=== PATIENT | male | born 1990 | race African-American/Black ===

== ENCOUNTER 2019-05-15 06:59 | Emergency (ER) | payer SELFPAY ==
[~2019-05-15] VITALS: Ht 177.8 cm; Wt 72.6 kg
[2019-05-15 07:02] VITALS: BP 141/98
--- NOTE | 2019-05-15 07:12 | NUR ---
C/O ITCHING TO LEFT EYE X1 WEEK, REDNESS AND SWELLING INCREASED X3 DAYS. STRONG MARIJUANA ODOR PRESENT. DENIES N/V/D; SKIN IS PINK/WARM/DRY; AAOX4 WITH EVEN AND STEADY GAIT; LUNGS CLEAR BL; HR EVEN AND REGULAR; PT DENIES ANY FEVER, CP, SOB, OR COUGH AT THIS TIME; PATIENT STATES PAIN OF 0/10 AT THIS TIME; VSS; PATIENT POSITIONED FOR COMFORT; HOB ELEVATED; BEDRAILS UP X2; BED DOWN. ER MD MADE AWARE OF PT STATUS.
--- NOTE | 2019-05-15 07:30 | NUR ---
Dr. Bergman evaluating patient at bedside.
[2019-05-15] MEDS ORDERED: predniSONE 20 MG TAB PO ONE (07:45)
[2019-05-15] MEDS ORDERED: AMOXIL/CLAVULANATE 875/125 MG 1 TAB PO ONE (07:45)
--- NOTE | 2019-05-15 08:00 | NUR ---
VISION ACUITY CHECKED. BOTH LEFT AND RIGHT ARE 20/20.
[2019-05-15 08:37] VITALS: BP 128/81
--- NOTE | 2019-05-15 08:39 | NUR ---
Patient discharged with v/s stable. Written and verbal after care instructions given and explained. Patient alert, oriented and verbalized understanding of instructions. Ambulatory with steady gait. All questions addressed prior to discharge. ID band removed. Patient advised to follow up with PMD. Rx of AUGMENTIN AND PREDINISONE given. Patient educated on indication of medication including possible reaction and side effects. Opportunity to ask questions provided and answered.
== END 2019-05-15 08:38 | disposition home or self-care (01) ==
LOC: MED 06:59
DX: T78.40XA Allergy, unspecified, initial encounter (principal); L03.213 Periorbital cellulitis; X58.XXXA Exposure to other specified factors, initial encounter; Y93.89 Activity, other specified; Y92.89 Other specified places as the place of occurrence of the external cause; Y99.8 Other external cause status
CPT/HCPCS: 99283; J7512